=== PATIENT | female | born 1960 | race Caucasian/White ===

== ENCOUNTER → 2023-12-11 14:26 | Outpatient (REF) | payer BC, SELFPAY | LOC: WDC 14:26 | PROVIDERS: ATTENDING PHYSICIAN Obstetrics & Gynecology; FAMILY PHYSICIAN Internal Medicine | DX: Z12.31 Encounter for screening mammogram for malignant neoplasm of breast (principal) | CPT/HCPCS: 77063; 77067 ==

== ENCOUNTER → 2024-06-26 12:49 | Outpatient (REF) | payer BC, SELFPAY | LOC: WDC 12:49 | PROVIDERS: ATTENDING PHYSICIAN Obstetrics & Gynecology; FAMILY PHYSICIAN Internal Medicine | DX: R92.2 Inconclusive mammogram (principal) | CPT/HCPCS: 76641 ==

== ENCOUNTER → 2024-12-16 10:27 | Outpatient (REF) | payer MEDICARE, SELFPAY | LOC: WDC 10:27 | PROVIDERS: ATTENDING PHYSICIAN Obstetrics & Gynecology; FAMILY PHYSICIAN Internal Medicine | DX: Z12.31 Encounter for screening mammogram for malignant neoplasm of breast (principal) | CPT/HCPCS: 77063; 77067 ==

== ENCOUNTER → 2025-05-21 09:09 | Outpatient (REF) | payer MEDICARE, SELFPAY | LOC: RAD 09:09 | PROVIDERS: ATTENDING PHYSICIAN Obstetrics & Gynecology; FAMILY PHYSICIAN Internal Medicine | DX: Z78.0 Asymptomatic menopausal state (principal) | CPT/HCPCS: 77080 ==

== ENCOUNTER → 2025-11-02 13:25 | Outpatient (REF) | payer MEDICARE, SELFPAY | LOC: EMG 13:25 | PROVIDERS: ATTENDING PHYSICIAN Nurse Practitioner Family | DX: R20.2 Paresthesia of skin (principal); R20.0 Anesthesia of skin | CPT/HCPCS: 95886; 95909 ==

== ENCOUNTER 2025-11-09 11:23 | Emergency (ER) | payer MEDICARE, SELFPAY ==
[2025-11-09 11:24] VITALS: BP 153/94
--- NOTE | 2025-11-09 12:07 | ED.GENMED ---
History of Present Illness
General
Chief Complaint: Numbness
Source: patient
Time Seen by Provider: 11/09/25 11:46
History of Present Illness
History of Present Illness:
65-year-old female with no significant past medical history presents to the emergency department for evaluation after she started experiencing right upper extremity pain and numbness on October 19, since that time the numbness is now isolated to the
little finger and ring finger but stating the right arm feels heavier compared to the left which has been ongoing for the last week and accompanied with right lower extremity similar heaviness sensation as well as paresthesia to the right side of
her face that seems to wax and wane. Patient states that the symptoms occur randomly throughout the day and does not appear to have any exacerbating or alleviating factors. She denies any history of similar but states her mother has a history of a
stroke when she was in her 70s and this is the patient's biggest concern. Patient did have an EMG study done last week which she reports was not abnormal. She denies any fevers or recent illnesses. No other concerns presently.
Past History
Past History
ED Past Medical History: None
ED Past Surgical History: Gynecological and Tonsilectomy
Social History
Tobacco: Non-smoker
Alcohol: Occasional
Drug: None
Personal:
Living: with family
Review of Systems
Review of Systems
All Other Systems: ROS reviewed and negative except as documented in HPI and ROS
Phy Exam
Physical Exam
Physical Exam:
GENERAL: Alert , in no apparent distress
HEAD: Normocephalic atraumatic
EYE: Clear conjunctiva
NECK: Supple,
ENT: o/p clr, mmm.
CARDIAC: Regular rate and rhythm .
LUNGS: Clear breath sounds bilaterally, no acute respiratory distress, no wheezes/rales/rhonchi
ABDOMEN: Soft, without focal tenderness, no r/g, no cvat
NEUROLOGICAL: Alert and oriented, FROM all extremities, no focal weakness appreciated, no metria or dysarthria, no aphasia, no facial droop
SKIN: Warm and dry, skin intact.
MUSCULOSKELETAL: No edema, well perfused.
PSYCH: Normal and appropriate interaction.
Scores
Heart Failure Risk
Heart Failure Risk Score: Not Applicable
Heart Score for Chest Pain Patients
STEMI patient?: Not applicable
Withdrawal Assessment of Alcohol
Withdrawal Assessment Completed?: Not applicable
Course
Orders/Labs/Results
Orders:
Orders
11/09/25 11:55
Electrocardiogram (*1) Urgent
Reason for Study: TIA/Stroke
EKG- Treatment ONCE
11/09/25 11:57
CT Head & Neck Angio W/wo IV Urgent
Comment:
Reason For Exam: RUE/RLE paresthesia, facial numbness
11/09/25 12:30
CRP [C-Reactive Protein] Routine
Comment: May add to blood in lab
Comprehensive Metabolic Panel Urgent
Ferritin Routine
Folate Routine
Comment: May add to blood in lab
Magnesium Urgent
TSH Reflex To Free T4 Routine
Comment: May add to blood in lab
Vitamin B12 Routine
Comment: May add to blood in lab or draw as routine
11/09/25 12:31
Complete Blood Count/With Diff Urgent
Erythrocyte Sed Rate Routine
Comment: may add to blood in lab
Troponin I Urgent
Urine Drug Abuse Screen Routine
Date Specimen was Collected: 11/09/25
Time Specimen was Collected: 12:18
Abnormal Lab Results
11/09/25 11/09/25
12:30 12:31
MCH 32.1 H pg
(27.0-31.0)
MPV 10.9 H fL
(7.4-10.4)
Lymphocytes % 19.2 L %
(20.5-51.1)
Total Protein 8.7 H g/dl
(6.3-8.2)
Albumin 5.2 H g/dl
(3.5-5.0)
11/09/25 12:31
11/09/25 12:30
Vital Signs
Initial and Last Documented VS:
Initial Vital Signs
Temp Pulse Resp BP Pulse Ox
97.7 F 84 20 153/94 100
11/09/25 11:24 11/09/25 11:24 11/09/25 11:24 11/09/25 11:24 11/09/25 11:24
Last Documented Vital Signs
Temp Pulse Resp BP Pulse Ox
97.7 F 92 18 128/72 99
11/09/25 11:24 11/09/25 13:56 11/09/25 13:56 11/09/25 13:56 11/09/25 13:56
MDM/Problems Addressed
Differential Diagnosis Includes:
CVA
Malignancy/mass
MS
Less concern for infectious etiology
Electrolyte imbalance
MDM/Problems Addressed:
65-year-old female presenting to the emergency department for evaluation of right-sided paresthesias and numbness over the course of the last 2 to 3 weeks. Symptoms not much different today, patient concern for possible stroke. Given the
persistent and waxing and waning nature of the symptoms a little less suspicious for this but will obtain CT of the head as well as CTA of the head and neck. Labs ordered. I did notify neurology to see if they would be able to consult on the
patient while in the ER. Disposition pending.
*Pulse Oximetry
SaO2: 100
Oxygen Mode of Delivery: Room air
Patient hypoxic: no
*EKG
Heart Rate: 85
Rate: normal
Rhythm: sinus
Ischemia: no ischemia
*Critical Care Note
Total Time (30-74mins, 75-104mins- exclusive of procedures): Not Applicable
Patient Management
Discussion with other providers: Chicken Picker
Escalation/DeEscalation of care consider admission/obs:
Patient CT and CTA are negative for any acute intracranial bleeding. Given her lack of focality on the exam combined with reassuring workup I do think it is reasonable for patient to be discharged home and continue this workup as an outpatient.
Discussed return precautions with the patient and spouse. They are in agreement with this treatment plan.
ED Attending Note
-
Portions of this chart may have been created with voice recognition software.� Occasional wrong word or��sound alike� substitutions may have occurred due to the inherent limitations of voice recognition software.
Discharge Plan
Departure
Patient Disposition: Home (Routine Discharge)
Date of Disposition: 11/09/25
Time of Disposition: 14:13
Patient with high blood pressure during this ER visit?: Yes
Discharge Problem:
Paresthesia of right arm and leg, Facial paresthesia
Instructions: Paresthesia (DC)
Referrals:
Elias Almonte MD [Family Provider, Internal Medicine]
Interventions
Interventions:
*General Assessment Last Done: 11/09/25 11:24
*Neglect/Abuse Screening Last Done: 11/09/25 11:24
*Risk Screen - Suicide (C-SSRS) Last Done: 11/09/25 11:24
*Nursing Disposition Last Done: 11/09/25 14:28
ED- Neurological Assessment Last Done: 11/09/25 12:32
Discharge Date and Time
Print Language: ERITREAN
--- NOTE | 2025-11-09 12:11 | CON.NEURO ---
Addendum entered and electronically signed by Anoop Melara MD 11/09/25 13:34:
Studies reviewed.
I have personally examined the patient. I reviewed and agree with the PHYSICIAN OFFICE NURSE's Note.
My addenda:
Awake, alert, interactive. No acute distress.
Speech intact.
Follows 2-step requests w/o difficulty. No tremor.
Extra-ocular movements grossly intact.
Facial movements full and symmetric. Hearing intact to normal conversational volume.
Normal UE movements bilaterally.
Neck: full ROM.
Chest: no dyspnea
Heart: no JVD
Ext: (-) Clubbing, (-) Cyanosis, (-) Edema
IMPRESSIONS/RECOMMENDATIONS:
Abrupt onset of multiweek change of sensation involving right hand and arm later right face and right foot, variable in nature with unclear modifying factors
Differential diagnosis is broad and would include structural abnormalities, focal onset seizures, toxic metabolic factors, and functional neurological etiologies
Check blood work potential metabolic abnormalities
Agree with CT head CTA head and neck
Eventual MRI of brain
D/W patient / family / nursing
All questions answered.
Will continue to follow patient.
Original Note:
Neuro Assessment/Plan
Assessment
Patient is a 65 year old female with no significant medical history presents to [facility] on 11/09/2025 for evaluation of right sided sensations changes.
EMG 11/03/2025:
1. Normal electrodiagnostic examination of the right upper limb.
2. There is no electrodiagnostic evidence of mononeuropathy, right cervical radiculopathy, plexopathy, nor peripheral polyneuropathy based on upper extremity examination.
Plan
Impression: abrupt onset of right sided sensation changes in a patient with no medical history other than hyperlipidemia, differentials include multiple sclerosis vs TIA/CVA vs migraine
-obtain brain MRI with/without contrast to look for structural abnormalities
-obtain CTA head/neck
-obtain blood work to look for abnormalities/deficiencies
-LDL 145 on recent blood work, recommend starting atorvastatin nightly
All questions encouraged and answered, plan of care discussed with Dr. Melara, patient and
Consultation
Order
Date of Consultation: 11/09/25
Requesting Provider: ED
Reason for Consult: right sided sensation changes
Subjective/Objective
Subjective Data
Date of Service: November 09, 2025
Patient is a 65 year old female with no significant medical history presents to [facility] on 11/09/2025 for evaluation of right sided sensations changes. On 10/19 whole hand with numbness. Within a few days her fingers except the 4th and 5th digit
resolved. A few days ago noticed numbness to her right side of her face, right foot and right eye blurriness. Face and right foot numbness transient and intermittent but right 4th and 5th digit numbness remains. Currently having numbness on right
side of face, right 4th and 5th digit and RLE. RUE feels heavy. On and off dizziness associated with symptoms for the last 2 weeks lasts for a few minutes that resolves when sitting down. Denies headache, SOB. Admits to palpations but thinks this is
her anxiety. Denies back pain but says her neck hurts off and on for about a week or two for a few seconds. Denies issues with bowel/bladder. Denies issues with balance or ambulation. Denies dropping things. She denies any history of similar but
states her mother has a history of a stroke when she was in her 70s and this is the patient's biggest concern. She denies any fevers or recent illnesses. She obtained an EMG of her RUE on 11/[address] Gomez which was unremarkable. Is due to get
blood work ordered by her PCP tomorrow.
Objective Data
Vital Signs
Temp Pulse Resp BP Pulse Ox
97.7 F 84 20 153/94 100
11/09/25 11:24 11/09/25 11:24 11/09/25 11:24 11/09/25 11:24 11/09/25 11:24
Patient Allergies
No Known Allergies Allergy (Verified 11/09/25 11:28)
Physical Exam
-
General: Comfortable and Younger than Stated Age
Eyes: PERRLA
HEENT: Normocephalic and Atraumatic
Neck: Full Range of Motion
Respiratory: No Dyspnea
Cardiac: No JVD
GI: Non-distended
Skin: Unremarkable
Extremities: No Clubbing, No Cyanosis and No Edema
Psych: Anxious
Extended Neurological Exam
Mood & Affect: Anxious
Attention Span & Concentration: Awake, Alert, Interactive and No Difficulty with 2 Step Request
Memory: Unremarkable
Involuntary Movement: None
Speech: Quality Unremarkable, Quantity Unremarkable and Rate of Production Unremarkable
Cranial Nerve II: Left Eye: Visual Orozco Intact
Cranial Nerve II: Right Eye: Visual Orozco Intact
Cranial Nerves III, IV, : Extraocular Movement: Extraocular Movement Full in all Directions
Cranial Nerve VII: Facial Symmetry: Normal Facial Symmetry
Cranial Nerve VIII: Hearing: Unremarkable Hearing to Normal Conversational Volume
Muscle Strength, Overall: Full Throughout
Pronator Drift: No Drift in Upper Extremities and No Drift in Lower Extremities
Cold Sensation: Unremarkable
Vibration Sensation: Unremarkable
Touch Sensation: Unremarkable, Double Simultaneous Stimulation Unremarkable and Pin Prick Unremarkable
Coordination: [id number] Testing Unremarkable
[2025-11-09 12:39] LABS: Hematocrit 42.8 % (37.0-47.0); Hemoglobin 14.3 g/dL (12.0-16.0); Mean Corp Hgb Conc. 33.4 g/dL (33.0-37.0); Mean Corpuscular Volume 96.0 fL (81.0-99.0); Nucleated Red Blood Cells % 0 %; Platelet Count 220 10^3/uL (130-400); Red Cell Dist. Width 12.6 % (11.5-14.5)
[2025-11-09 12:55] LABS: ALT (SGPT) 15 U/L (0-35); AST (SGOT) 26 U/L (14-36); Albumin 5.2 g/dl (3.5-5.0); Alkaline Phosphatase 63 U/L (38-126); Blood Urea Nitrogen 8 mg/dl (7-17); Calcium 9.8 mg/dl (8.4-10.2); Carbon Dioxide 26 mmol/L (22-30); Chloride 102 mmol/L (98-107); Glucose 94 mg/dl (70-99); Magnesium 1.8 mg/dl (1.6-2.3); Potassium 4.5 mmol/L (3.5-5.1); Sodium 136 mmol/L (135-145); Total Protein 8.7 g/dl (6.3-8.2); eGFR > 60.00
[2025-11-09 12:57] LABS: C-Reactive Protein < 5.00 mg/L (0.0-10.00)
[2025-11-09 13:06] LABS: Troponin I < 0.012 ng/ml
[2025-11-09 13:33] LABS: Ferritin 110.0 ng/ml (11.1-264.0)
[2025-11-09 13:56] VITALS: BP 128/72
[2025-11-09 14:04] LABS: Folate 10.8 ng/ml (2.76-20); Vitamin B12 428 pg/ml (239-931)
== END 2025-11-09 14:33 | disposition home or self-care (01) ==
LOC: EMR 11:23
PROVIDERS: Physician Assistant Medical; Psychiatry & Neurology Neurology; EMERGENCY PHYSICIAN Emergency Medicine; FAMILY PHYSICIAN Internal Medicine Geriatric Medicine
DX: R20.2 Paresthesia of skin (principal); M79.601 Pain in right arm; M54.2 Cervicalgia; H53.8 Other visual disturbances; R00.2 Palpitations; R03.0 Elevated blood-pressure reading, without diagnosis of hypertension; E78.5 Hyperlipidemia, unspecified; F41.9 Anxiety disorder, unspecified
CPT/HCPCS: 99284; 70496; 70498; 80053; 80306; 82607; 82728; 82746; 83735; 84443; 84484; 85025; 85652; 86140; 93005; Q9967